=== PATIENT | female | born 1985 | race Caucasian/White ===

== ENCOUNTER 2019-08-03 09:18 | Emergency (ER) | payer MEDICAID ==
[~2019-08-03] VITALS: Ht 167.6 cm; Wt 84.0 kg
[2019-08-03] MEDS ORDERED: IBUPROFEN 600MG TABLET PO ONE (10:15)
[2019-08-03 10:56] VITALS: BP 138/80
== END 2019-08-03 10:57 | disposition home or self-care (01) ==
LOC: ER 09:28
DX: S20.211A Contusion of right front wall of thorax, initial encounter (principal); G43.909 Migraine, unspecified, not intractable, without status migrainosus; S66.812A Strain of other specified muscles, fascia and tendons at wrist and hand level, left hand, initial encounter; S66.811A Strain of other specified muscles, fascia and tendons at wrist and hand level, right hand, initial encounter; V49.59XA Passenger injured in collision with other motor vehicles in traffic accident, initial encounter; Y93.89 Activity, other specified; Y92.89 Other specified places as the place of occurrence of the external cause; Y99.8 Other external cause status
CPT/HCPCS: 99283